=== PATIENT | male | born 1980 | race African-American/Black ===

== ENCOUNTER 2016-12-02 06:35 | Emergency (ER) | payer OTHER ==
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
[2016-12-02 08:13] VITALS: BP 126/89; PULSE 83; TEMP 98.3; BMI 28.3
[2016-12-02 08:23] LABS: BASOPHIL 0.4 % (0-2.0); MCH 25.7 pg (25.7-33.7); MCHC 32.4 g/dl (32.0-35.9); MEAN CELL VOLUME 79.1 fl (80-96); MEAN PLT VOLUME 7.2 fl (7.5-11.1); PLATELET COUNT 249 K/MM3 (134-434); RDW 14.9 % (11.9-15.9); WHITE BLOOD COUNT 9.6 K/mm3 (4.0-10.0)
[2016-12-02 08:49] LABS: ALBUMIN 4.4 g/dl (3.4-5.0); ANION GAP 10 (8-16); CALCIUM 9.2 mg/dL (8.5-10.1); CHOLESTEROL 271 mg/dL (50-200); CO2 24 mmol/L (21-32); COCKROFT - GAULT 119.64; CREATININE 1.2 mg/dL (0.7-1.3); GLUCOSE,RANDOM 96 mg/dL (74-106); LDH 225 U/L (87-241); PHOSPHOROUS 3.9 mg/dL (2.5-4.9); SGOT/AST 20 U/L (15-37); SGPT/ALT 42 U/L (12-78); TOT PROT 8.3 g/dl (6.4-8.2); URIC ACID 8.6 mg/dL (2.6-7.2)
[2016-12-02 08:50] LABS: ALK PHOS 82 U/L (45-117); BILIRUBIN,TOTAL 0.7 mg/dL (0.2-1.0)
[2016-12-02 09:32] LABS: HIV 1 & 2 AB NEGATIVE; HIV 1 AGp24 NEGATIVE
== END 2016-12-02 08:40 | disposition home or self-care (01) ==
LOC: JER 06:35
DX: Z77.21 Contact with and (suspected) exposure to potentially hazardous body fluids (principal); S60.812A Abrasion of left wrist, initial encounter; Y35.811A Legal intervention involving manhandling, law enforcement official injured, initial encounter; Y93.89 Activity, other specified; Y92.238 Other place in hospital as the place of occurrence of the external cause; Y99.0 Civilian activity done for income or pay
CPT/HCPCS: 36415; 80053; 82465; 82977; 83615; 84100; 84478; 84550; 85025; 86704; 86706; 87340; 87389; 99281-25

== ENCOUNTER 2018-07-02 03:45 | Emergency (ER) | payer BC, OTHER ==
[2018-07-02 04:02] VITALS: BP 117/88; PULSE 81; TEMP 97.2; BMI 29.0
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
== END 2018-07-02 04:13 | disposition home or self-care (01) ==
LOC: JER 03:45
DX: S00.83XA Contusion of other part of head, initial encounter (principal); Y35.811A Legal intervention involving manhandling, law enforcement official injured, initial encounter; Y93.89 Activity, other specified; Y92.89 Other specified places as the place of occurrence of the external cause; Y99.0 Civilian activity done for income or pay
CPT/HCPCS: 99281-25